=== PATIENT | female | born 1985 | race Caucasian/White ===

== ENCOUNTER 2025-07-17 13:29 | Emergency (ER) | payer MEDICAID ==
[~2025-07-17] VITALS: Ht 170.2 cm; Wt 47.6 kg
[2025-07-17 14:10] LABS: PLATELET COUNT (AUTO) 494 K/uL (179-408); RED BLOOD CELL COUNT(AUTO) 4.97 MIL/uL (3.63-4.92); RED CELL DISTRIBUTION WIDTH 13.0 % (12.3-17.7); WHITE BLOOD COUNT (AUTO) 12.1 K/uL (3.8-11.8)
[2025-07-17 14:16] LABS: CREATININE 0.9 mg/dL (0.6-1.3); SODIUM SERUM 127.0 mmol/L (136-145); UREA NITROGEN, BLOOD 24.0 mg/dL (7-18)
[2025-07-17 14:21] LABS: ASPARTATE AMINOTRANSFERASE 35.0 U/L (15-37); TOTAL PROTEIN, SERUM 7.4 g/dL (6.4-8.2)
[2025-07-17 14:21] LABS: *BILIRUBIN,URIN 2+ (NEGATIVE); *BLOOD, URINE NEGATIVE (NEGATIVE); *CLARITY,URINE TURBID (CLEAR); *COLOR,URINE DARK YELLOW (YELLOW); *KETONES,URINE 1+ (NEGATIVE); *PROTEIN,URINE 3+ (NEGATIVE); *UROBILINOGEN,URINE 2.0 E.U./dl (NORMAL); LEUKOCYTE ESTERASE ,URINE NEGATIVE (NEGATIVE); NITRITE, URINE NEGATIVE (NEGATIVE); UGLUCOSE NEGATIVE (NEGATIVE)
[2025-07-17 14:24] LABS: *URINE HCG, QUAL NEGATIVE (NEGATIVE)
[2025-07-17 14:30] LABS: SQUAMOUS EPITHELIAL CELL,UR FEW /HPF (NONE SEEN); URINE AMORPHOUS URATE MANY /HPF
[2025-07-17] MEDS: IV NORMAL SALINE 1000 ML BAG IV ONE (14:35)
[2025-07-17] MEDS ORDERED: IV NORMAL SALINE 250 ML IV ONE (14:51)
[2025-07-17] MEDS ORDERED: CELLULOSE,OXIDIZED 2x3 MC ONE (14:51)
[2025-07-17] MEDS ORDERED: IOHEXOL 300MG/ML 100 ML INFUS..BTL ONE (14:51)
[2025-07-17] MEDS ORDERED: PIPERACILLIN/TAZO 4.5 GM VIAL IV ONE (16:44)
[2025-07-17] MEDS: PIPERACILLIN SODIUM/TAZOBACTAM 4.5 G in IV DEXTROSE 5% 50 ML IV ONE (16:55)
[2025-07-17 20:15] VITALS: BP 129/98; O2SAT 94
== END 2025-07-17 20:30 | disposition short-term general hospital (02) ==
LOC: ER 13:37
DX: K65.0 Generalized (acute) peritonitis (principal); R06.00 Dyspnea, unspecified; R07.9 Chest pain, unspecified
CPT/HCPCS: 99285; 74177; 96365; 71045; 96361; 80076; 80048; 81001; 84703; 83690; 85025; 87040 ×2; 87086; 36415; 83605; Q9967; J2543; J7040; A4606; A4663